=== PATIENT | female | born 1990 | race Caucasian/White ===

== ENCOUNTER 2018-02-05 19:15 | Inpatient (IN) | payer MEDICAID ==
[~2018-02-05] VITALS: Ht 165.1 cm; Wt 170.2 kg
[2018-02-05 19:17] VITALS: Ht 165.1 cm; Wt 170.2 kg
[2018-02-05 20:53] LABS: BASOPHIL % 1.3 % (0-2); PLATELET COUNT 242 x10^3mcL (130-400)
[2018-02-05 20:55] LABS: RED CELL DISTRIBUTION WIDTH 15.2 % (11.5-14.5)
[2018-02-05 21:03] LABS: CALCIUM 8.8 mg/dL (8.5-10.1); CARBON DIOXIDE 29.7 mmol/L (21-32); CHLORIDE SERUM 103 mmol/L (98-107); CREATININE SERUM 0.9 mg/dL (0.6-1.0); GFR1 > 60 mL/min; GLUCOSE SERUM 95 mg/dL (74-106); SODIUM SERUM 141 mmol/L (136-145)
[2018-02-05 21:08] LABS: ALKALINE PHOSPHATASE 141 U/L (46-116); ALT/SGPT 479 U/L (14-59); AMYLASE 31 U/L (25-115); AST/SGOT 641 U/L (15-37); BILIRUBIN TOTAL 1.72 mg/dL (0.20-1.00); LIPASE 145 IU/L (73-393); TOTAL PROTEIN, SERUM 7.3 g/dL (6.4-8.2)
[2018-02-05 21:13] LABS: ALBUMIN 3.2 g/dL (3.4-5.0)
[2018-02-05 22:27] LABS: T3 TOTAL 1.05 ng/mL
[2018-02-05 22:34] LABS: FREE T4 1.1 ng/dL (0.76-1.46); T4(THYROXINE) 8.5 ug/dL (4.7-13.3)
[2018-02-05 22:51] LABS: MAGNESIUM 1.8 mg/dL (1.8-2.4); PHOSPHOROUS 3.4 mg/dL (2.5-4.9)
[2018-02-05] MEDS ORDERED: PANTOPRAZOLE SO20 M1 PO (23:01)
[2018-02-05] MEDS ORDERED: CEPHALEXIN500 M1 PO (23:02)
[2018-02-05 23:17] VITALS: BP 123/77
[2018-02-05 23:30] LABS: CHOLESTEROL/HDL RATIO 3.1
[2018-02-06 00:31] LABS: UA SPECIFIC GRAVITY 1.015 (1.005-1.035); microscopic required? YES; urine erythrocyte 1+ (NEGATIVE)
[2018-02-06 00:40] LABS: AMPHETAMINE QUAL UR NONE DETECTED (See below)
[2018-02-06 05:43] VITALS: BP 123/77
[2018-02-06 06:17] LABS: BASOPHIL % 0.4 % (0-2); CALCIUM 8.4 mg/dL (8.5-10.1); CARBON DIOXIDE 31.9 mmol/L (21-32); CHLORIDE SERUM 106 mmol/L (98-107); CREATININE SERUM 0.7 mg/dL (0.6-1.0); GFR1 > 60 mL/min; GLUCOSE SERUM 98 mg/dL (74-106); MAGNESIUM 1.9 mg/dL (1.8-2.4); PHOSPHOROUS 4.3 mg/dL (2.5-4.9); PLATELET COUNT 216 x10^3mcL (130-400); POTASSIUM SERUM 4.3 mmol/L (3.5-5.1); SODIUM SERUM 140 mmol/L (136-145)
[2018-02-06 06:29] LABS: RED CELL DISTRIBUTION WIDTH 15.6 % (11.5-14.5)
[2018-02-06 09:07] VITALS: BP 122/65
[2018-02-06 16:38] VITALS: BP 135/75
[2018-02-06 20:40] VITALS: BP 110/74
[2018-02-07 05:58] VITALS: BP 105/68
[2018-02-07 06:25] LABS: BASOPHIL % 0.5 % (0-2); PLATELET COUNT 221 x10^3mcL (130-400)
[2018-02-07 06:34] LABS: ALKALINE PHOSPHATASE 163 U/L (46-116); ALT/SGPT 743 U/L (14-59); AMYLASE 27 U/L (25-115); AST/SGOT 579 U/L (15-37); BILIRUBIN DIRECT 2.53 mg/dL (0.0-0.2); BILIRUBIN TOTAL 3.1 mg/dL (0.20-1.00); CALCIUM 8.5 mg/dL (8.5-10.1); CARBON DIOXIDE 28.7 mmol/L (21-32); CHLORIDE SERUM 105 mmol/L (98-107); CREATININE SERUM 0.6 mg/dL (0.6-1.0); GFR1 > 60 mL/min; GLUCOSE SERUM 103 mg/dL (74-106); LIPASE 132 IU/L (73-393); SODIUM SERUM 139 mmol/L (136-145); TOTAL PROTEIN, SERUM 6.7 g/dL (6.4-8.2)
[2018-02-07 06:44] LABS: RED CELL DISTRIBUTION WIDTH 14.6 % (11.5-14.5)
[2018-02-07 06:47] LABS: ALBUMIN 2.9 g/dL (3.4-5.0)
[2018-02-07 08:35] VITALS: BP 125/72
== END 2018-02-07 11:00 | disposition left against medical advice (07) ==
LOC: ED 19:15 → MU 21:34
PROVIDERS: Emergency Medicine; Internal Medicine
DX: K80.20 Calculus of gallbladder without cholecystitis without obstruction (principal); E44.0 Moderate protein-calorie malnutrition; R74.0 Nonspecific elevation of levels of transaminase and lactic acid dehydrogenase [LDH]; E66.01 Morbid (severe) obesity due to excess calories; E80.6 Other disorders of bilirubin metabolism; Z68.44 Body mass index [BMI] 60.0-69.9, adult; Z71.3 Dietary counseling and surveillance
CPT/HCPCS: 83880; 84439; J2270; J2550; J7030; Q0092; Q0162